=== PATIENT | female | born 1985 | race Asian ===

== ENCOUNTER 2017-01-13 07:45 | Emergency (ER) | payer BC ==
--- NOTE | ~2017-01-13 | CT4 ---
[facility] A Service of [facility] RADIOLOGY TEXT RESULTS PATIENT: DIANE QUEVEDO LOCATION: [facility] : 87 UNIT #: [id number] AGE: [address]: Kadi Reece SEX: F ORDER DR: [id number] [place] [id number] [facility]. [place], [place] [address] [id number] MR#: [id number] Acc #: [id number] NAME: DIANE QUEVEDO : 1985 SEX: F STUDY DATE/TIME: 01/13/2017 09:25 UNIT: [facility] ROOM: STUDY DESCRIPTION: CT Abd and Pelv Wo Cont Attending Physician: Kadi Reece Pa-C Ordering Physician: Kadi Reece Pa-C Primary Care Physician: Primary Care Physician No MEDICAL IMAGING REPORT This report is preliminary unless electronic signature is present EXAM CT abdomen and pelvis without contrast, 01/13/2017 09:25 hours HISTORY 31-year-old with complaint of low back pain for 2 days, fever, sore throat and mouth sores since yesterday. COMPARISON None TECHNIQUE Helical noncontrasted images were obtained from the lung bases through the pubic symphysis without oral or intravenous contrast. Sagittal and coronal reconstructions were performed. Total exam DLP 615 mGy-cm. This CT exam was performed with one or more of the following radiation dose reduction techniques: automatic exposure control, adjustment of mA and/or kV according to patient size, and iterative reconstruction. FINDINGS Images through the lung bases are clear. There are no effusions. The distal esophagus is normal. Noncontrasted images through the abdomen demonstrate a normal appearance to the liver, spleen, pancreas, gallbladder and bile ducts. The adrenal glands are normal. The kidneys demonstrate no mass, stone or obstruction. There is no ureterectasis or ureteral calculus. The stomach is contracted and unopacified but appears normal. There is no small bowel distension or small bowel wall thickening. The appendix and terminal ileum are normal. The colon is unremarkable. [facility] A Service [facility] RADIOLOGY TEXT RESULTS PATIENT: DIANE QUEVEDO LOCATION: [facility] : 87 UNIT #: [id number] AGE: [address]: Kadi Reece SEX: F ORDER DR: CT pelvis demonstrates an intrauterine device within the uterus. There is no myometrial mass. Both ovaries are identified with a follicular type cyst on the right ovary measuring 2.5 cm. This is likely physiologic. The bladder is normal. Patient has bilateral pars defects at L5 resulting in 9.0 mm of anterolisthesis of L5 on S1. There is mild sclerotic change at the iliac side of the right sacroiliac joint. IMPRESSION 1. No acute findings in the abdomen or pelvis. 2. 2.5 cm follicular cyst right ovary likely physiologic. 3. Bilateral pars defects at L5 resulting in 9.0 mm of anterolisthesis of L5 on S1, likely chronic. 4. Mild sclerotic degenerative change on the iliac side of the right sacroiliac joint. Dictated by... Rashmi Ariza M.D. THIS IS AN ELECTRONICALLY VERIFIED REPORT Rashmi Ariza M.D. at 01/13/2017 2:30 PM Dave TD: 01/13/2017 14:11 JOB #: [id number] MEDICAL IMAGING REPORT COPY
[2017-01-13 07:52] LABS: URINE SOURCE CLEAN CATCH
[2017-01-13 07:55] LABS: URINE APPEARANCE CLOUDY; URINE BLOOD 4+ (NEG); URINE COLOR BROWN; URINE GLUCOSE NORM (NORM); URINE KETONE 1+ (NEG); URINE LEUKOCYTE ESTERASE 3+ (NEG); URINE NITRATE NEG (NEG); URINE PROTEIN 3+ (NEG); URINE UROBILINOGEN NORM (NORM)
[2017-01-13 07:57] LABS: URINE BILIRUBIN NEG (NEG)
[2017-01-13 07:58] LABS: CULTURE INDICATED? YES; U HYALINE CASTS AUWI 0-2 /[LPF]; URINE BACTERIA AUWI 2+ (NEGATIVE); URINE SQUAMOUS EPITHELIAL CELL MODERATE /[HPF]; UWBCS1 AUWI 50-100 (0-5)
[2017-01-13 07:59] LABS: URBCS1 AUWI 25-50 /[HPF] (0-2)
[2017-01-13 09:13] LABS: BASOPHIL# 0.1 X10e3 (0-0.3); BASOPHIL% 0.6 % (0-2.5); EOSINOPHIL% 0.1 % (0.0-7.0); HEMATOCRIT 35.9 % (35.0-45.0); HEMOGLOBIN 11.9 gm/dL (12.0-16.0); LYMPHOCYTE# 1.6 X10e3 (1.0-3.5); LYMPHOCYTE% 10.1 % (17.0-45.0); MEAN CELL VOLUME 85.4 FL (83-96); MEAN CORPUSCULAR HEMOGLOBIN 28.3 PG (28-34); MEAN CORPUSCULAR HGB CONC 33.2 g/dL (30-36); MEAN PLATELET VOLUME 8.2 FL (6.5-11.5); MONOCYTE% 6.5 % (3.0-12.0); NEUTROPHIL# 13.1 X10e3 (1.5-7.1); NEUTROPHIL% 82.7 % (40-75); PLATELET COUNT 190 X10e3 (140-420); RED BLOOD COUNT 4.21 X10e (3.90-5.30); RED CELL DISTRIBUTION WIDTH 13.1 % (11.0-15.5); WHITE BLOOD COUNT 15.9 X10e3 (4.0-10.5)
[2017-01-13 09:14] LABS: DIFF IND YES
[2017-01-13 09:58] LABS: ANISOCYTOSIS SL; PLATELET ESTIMATE NORMAL (NORMAL); RBC NORMAL YES
== END 2017-01-13 10:47 | disposition home or self-care (01) ==
LOC: CED 07:45
PROVIDERS: Physician Assistant Medical
DX: J02.9 Acute pharyngitis, unspecified (principal); N12 Tubulo-interstitial nephritis, not specified as acute or chronic
CPT/HCPCS: 74176; 81003; 84703; 85025; 87086; 87651; 96374; 96375; 99284; J0696; J2405

== ENCOUNTER → 2017-03-02 | Outpatient (CLI) | payer BC ==
--- NOTE | ~2017-03-02 | CT4 ---
[facility] A Service of [facility] RADIOLOGY TEXT RESULTS PATIENT: DIANE QUEVEDO LOCATION: [facility] : 87 UNIT #: [id number] AGE: [address]: Rakesh Anton MD SEX: F ORDER DR: [id number] [facility] [address] [place], [place] [address] [id number] O MR#: [id number] [facility] #: [id number] NAME: DIANE QUEVEDO : 1985 SEX: F STUDY DATE/TIME: 03/02/2017 9:37 UNIT: [facility] ROOM: STUDY DESCRIPTION: CT Abd and Pelv Wo Cont Attending Physician: Rakesh Anton M.D. Ordering Physician: Rakesh Anton M.D. Primary Care Physician: Rakesh Anton M.D. MEDICAL IMAGING REPORT This report is preliminary unless electronic signature is present EXAM CT abdomen and pelvis without contrast. INDICATION Bilateral flank pain, microhematuria for the past 3 months. Previous history of renal calculi. PROCEDURE Unenhanced CT of the abdomen and pelvis. This CT exam was performed with one or more of the following radiation dose reduction techniques: automatic exposure control, adjustment of mA and/or kV according to patient size, and iterative reconstruction. COMPARISON 01/13/2017 FINDINGS ABDOMEN WITHOUT CONTRAST: Included lung bases are clear. Liver, spleen, kidneys, adrenal glands, pancreas, gallbladder have an unremarkable unenhanced appearance. Bowel loops are nondilated. Appendix is normal. Moderate colonic stool. No radiodense urinary system calculus or hydronephrosis. PELVIS WITHOUT CONTRAST: IUD is in place. 2.7 cm left adnexal cyst. No free pelvic fluid. No aggressive appearing bone lesion. There are bilateral L5 pars defects. Approximately 8 mm anterolisthesis of L5 on S1, similar to the previous study. IMPRESSION 1. No acute findings. 2. 2.7 cm cyst left adnexa, probably representing a functional cyst [facility] Service of [facility] RADIOLOGY TEXT RESULTS PATIENT: DIANE QUEVEDO [id number] [birth year] UNIT #: [id number] AGE: [address]: Rakesh Anton MD SEX: F ORDER DR: given the patient's age. The IUD is in place. 3. L5 pars defects with stable anterolisthesis of L5 on S1. Dictated by... hSaran Uriostegui M.D. THIS IS AN ELECTRONICALLY VERIFIED REPORT Sharan Uriostegui M.D. at 03/03/2017 3:56 PM EMMA/nadira TD: 03/02/2017 15:28 JOB #: [id number] MEDICAL IMAGING REPORT Page 1 of 1 COPY
== END | disposition home or self-care (01) ==
LOC: CCAT 08:51
DX: R31.29 Other microscopic hematuria (principal); M54.5 Low back pain; N83.202 Unspecified ovarian cyst, left side; M43.16 Spondylolisthesis, lumbar region
CPT/HCPCS: 74176